=== PATIENT | female | born 1960 | race Caucasian/White ===

== ENCOUNTER → 2019-04-21 | Outpatient (CLI) | payer OTHER ==
[2019-04-21 07:34] LABS: ABSOLUTE EOSINOPHILS 0.1 thou/uL (0.0-0.7); ABSOLUTE LYMPHOCYTES 1.4 thou/uL (0.8-5.3); ABSOLUTE MONOCYTES 0.3 thou/uL (0.0-1.2); ABSOLUTE NEUTROPHILS 2.1 thou/uL (1.6-8.1); BASOPHILS 1.1 %; EOSINOPHILS 3.1 %; HEMATOCRIT 40.4 % (37.0-47.0); HEMOGLOBIN 13.5 gm/dL (12.0-15.0); LYMPHOCYTES 35.8 %; MCH 32.2 pg (26.0-34.0); MCHC 33.4 g/dL (28.0-37.0); MCV 96.3 fL (80.0-100.0); MONOCYTES 7.7 %; NUCLEATED RBCS 0 /100WBC; PLATELET COUNT* 256 thou/uL (150-400); POLYS 52.3 %; RDW-CV 12.1 % (10.5-14.5)
[2019-04-21 07:55] LABS: ALKALINE PHOSPHATASE 91 U/L (46-116); ANION GAP 4 mmol/L (7-16); BUN 21 mg/dL (7-18); CALCIUM 9.4 mg/dL (8.5-10.1); CHLORIDE 108 mmol/L (98-107); CHOLESTEROL 196 mg/dL (<200); CO2 31 mmol/L (21-32); CREATININE 0.9 mg/dL (0.6-1.3); GLUCOSE 111 mg/dL (70-99); HDL CHOLESTEROL 67 mg/dL (>40); LDL CHOLESTEROL 121 mg/dL (<100); POTASSIUM 4.2 mmol/L (3.5-5.1); SGOT 19 U/L (15-37); SGPT 32 U/L (30-65); SODIUM 143 mmol/L (136-145); TC:HDL 2.9 Ratio (Not establshd); TOTAL BILIRUBIN 0.4 mg/dL (<0.1-1.0); TOTAL PROTEIN 7.3 g/dL (6.4-8.2); TRIGLYCERIDE 43 mg/dL (<150); VLDL 9 mg/dL (<40)
[2019-04-21 08:03] LABS: SERUM ASSESSMENT Clear
== END ==
LOC: M.LAB 07:04
PROVIDERS: Nurse Practitioner Family
DX: Z11.59 Encounter for screening for other viral diseases (principal)

== ENCOUNTER → 2020-12-20 | Outpatient (CLI) | payer OTHER ==
[~2020-12-20] MED LIST: ASA81BEC PO; CELEBREX 200 M200 M1 PO; GINGER250 MG PO; GLUCOSAMINE-CH1 EA33 PO; MAGNESIUM MALATE1 GM PO; PREDNISONE 20 M20 MG PO; PROTANDIM PO; TRAMADOL 50 MG50 MG PO; XANAX 0.5 MG0.5 M1 PO; ZINC SULFATE220 MG PO; [UNRECOGNIZED DRUG - OTHER] PO
[2020-12-20 10:29] LABS: HEMATOCRIT 41.5 % (37.0-47.0); MCH 31.5 pg (26.0-34.0); MCHC 33.6 g/dL (28.0-37.0); MCV 93.7 fL (80.0-100.0); MPV 7.9 fl. (7.2-11.1); RBC 4.43 mil/uL (4.20-5.00); RDW-CV 12.3 % (10.5-14.5); WBC 6.3 thou/uL (4.0-11.0)
[2020-12-20 10:43] LABS: APTT 25.4 Seconds (25.0-31.3); PROTIME 10.4 Seconds (9.20-11.50)
[2020-12-20 11:34] LABS: ALBUMIN 4.1 g/dL (3.4-5.0); CALCIUM 9.6 mg/dL (8.5-10.1); CREATININE 0.9 mg/dL (0.6-1.3); POTASSIUM 4.5 mmol/L (3.5-5.1); TOTAL BILIRUBIN 0.5 mg/dL (<0.1-1.0); TOTAL PROTEIN 7.2 g/dL (6.4-8.2)
--- NOTE | 2020-12-20 12:51 | EKG ---
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
== END ==
LOC: M.LAB 10:06
PROVIDERS: ATTEND Orthopaedic Surgery
DX: Z01.812 Encounter for preprocedural laboratory examination (principal); Z20.822 Contact with and (suspected) exposure to COVID-19; N18.6 End stage renal disease; I49.9 Cardiac arrhythmia, unspecified

== ENCOUNTER 2020-12-26 06:15 | Observation (INO) | payer OTHER ==
[~2020-12-26] VITALS: Ht 165.1 cm; Wt 81.6 kg
--- NOTE | ~2020-12-26 | OP ---
[address] [address] OPERATIVE REPORT Name: EBONY GALEAS Room: [address] Ran Black#: [id number] Admission: 12/26/20 Attend Phys: Adina Corral Discharge: Date of : 60 Report #: [id number] THIS REPORT FOR: cc: Isabel Trujillo Tami FNP ~ Alcides Reeder DO DICTATED BY: Rancho Oliveira DO DATE OF SERVICE: 12/26/2020 PREOPERATIVE DIAGNOSIS: Right hip degenerative joint disease. POSTOPERATIVE DIAGNOSIS: Right hip degenerative joint disease. PROCEDURE PERFORMED: Right total hip arthroplasty utilizing the [employer] total hip system with the following components: 1. A size 54 mm G7 acetabular shell. 2. Two 25 mm 6.5 acetabular screws. 3. A 40 mm vitamin E highly cross-linked high wall polyethylene liner. 4. Size 7 standard offset femoral stem. 5. A -3 mm neck with a 40 mm head. SURGEON: Alcides Reeder DO MANAGER DIGITAL AD OPERATIONS: Rancho Oliveira DO and Jorge Iyer DO ANESTHESIA: General. ESTIMATED BLOOD LOSS: 200 mL. ANTIBIOTICS: 2 g Ancef IV preoperatively. SPECIMENS: None. DRAINS: None. COMPLICATIONS: None. CONDITION: The patient is stable to PACU. INDICATIONS FOR PROCEDURE: This is a pleasant 60-year-old female who was seen and examined in the outpatient orthopedic clinic with regards to right hip pain. Radiographs in the clinic were obtained, which demonstrated advanced degenerative joint disease with joint space narrowing, subchondral sclerosis and osteophytic lipping. She tried and failed conservative treatment including [facility] [address] [place] [address] OPERATIVE REPORT Name: EBONY GALEAS Room: [address] Ran Black#: [id number] Admission: 12/26/20 Attend Phys: Adina Corral Discharge: Date of : 60 Report #: [id number] activity modification, anti-inflammatories and therapy. Right total hip arthroplasty was discussed with the patient. The risks, benefits, alternatives and complications were discussed. The patient wished to proceed. DESCRIPTION OF PROCEDURE: The patient was seen and examined in the preoperative holding area. The correct operative extremity was marked. Written consent was obtained. The patient was transferred to the operating room and placed supine on the Morrison table. She was given the benefit of general anesthesia. The legs were then placed in the leg spars. The right lower extremity was then prepped and draped in the usual sterile fashion. Timeout was performed to verify the correct patient, procedure and operative extremity and all were in agreement. Next, procedure began with a standard anterior incision just lateral and distal to the ASIS. Sharp dissection was carried down through subcutaneous layer to the tensor fascia. The tensor fascia was then incised longitudinally in line with the incision. The tensor fascia was then able to be elevated bluntly exposing the interval. Next, the circumflex vessels were identified and cauterized with Aquamantys. Next, the anterior joint capsule was exposed and appropriate retractors were then placed. The joint capsule was then treated with the Aquamantys and an H-type capsulotomy was then performed. This exposed the femoral neck. There was noted to be multiple osteophytes and eburnated bone. Next, the femoral neck cut was performed extending from the central portion of the femoral neck to approximately 1 fingerbreadth above the lesser trochanter. A more proximal napkin ring cut was then made. Napkin ring portion of the femoral neck was removed and the femoral head was removed. Attention was then turned to the acetabulum. Acetabular labrum was excised. The remainder of the ligamentum and the fovea was excised. Next, the acetabulum was reamed sequentially up to a size 53 mm reamer. Final reaming was done under C-arm guidance. Next, the final size 54 mm acetabular shell was inserted in appropriate position. Two acetabular screws were then placed. The central screw cover was then placed as well. Next, the 40 mm high wall liner was then placed with the high wall in the superior direction. Attention was then turned to the femur. Appropriate retractors were placed and the medial capsule was released. Femur was able to be externally rotated to 120 degrees. The leg was then brought into extension and abduction. Femoral lift was placed. Posterior capsule was released allowing the femur to be elevated for appropriate visualization. The femoral canal was then opened with the box osteotome followed by the rat tail rasp. The femur was then broached sequentially starting with a 4 up to a size 7. The size 7 was noted to have excellent stability and fit. This was then trialled. Varying head and neck sizes and lengths were trialed. Ultimately, the -3 was noted to have appropriate leg lengths with excellent stability. The hip was dislocated and the trial components were removed. The final size 7 standard femoral stem was inserted and followed by the -3 neck adapter and 40 mm head. The head and neck were impacted in the standard fashion. The hip was then reduced. The hip was taken through range of motion and noted to have excellent stability. Final [address] [address] OPERATIVE REPORT Name: EBONY GALEAS Room: [facility]#: [id number] Admission: 12/26/20 Attend Phys: Adina Corral Discharge: Date of : 60 Report #: [id number] radiographs were obtained, which demonstrated appropriate position of the implants with no signs of complication. Next, the wound was thoroughly irrigated with normal saline. A 120 mL of orthopedic cocktail was injected. The tensor fascia was then closed with #1 Stratafix in a running fashion. A 2-0 Vicryl was used subcutaneously followed by running 3-0 Stratafix and skin glue. Sterile dressing was applied. The patient was then awakened from anesthesia and transferred to the PACU in stable condition. The patient tolerated the procedure well and no complications. By: [id number] Reeder DO /monserrat
[2020-12-26 07:23] VITALS: BP 144/78
[2020-12-26] MEDS ORDERED: ELIQUIS2.5 MG PO (11:34)
[2020-12-26] MEDS ORDERED: OXYCODONE HCL 55 MG PO (11:36)
[2020-12-26] MEDS ORDERED: TRAMADOL 50 MG50 MG PO (11:37)
[2020-12-26] MEDS ORDERED: ASPIRIN325 PO (11:39)
[2020-12-26 12:06] VITALS: BP 144/78
== END 2020-12-26 17:40 | disposition home or self-care (01) ==
LOC: M.PRE → M.TBA 06:15 → M.PRE 07:00 → M.TBA 17:40
PROVIDERS: ADMIT Internal Medicine; ATTEND Internal Medicine
DX: M16.11 Unilateral primary osteoarthritis, right hip (principal)

== ENCOUNTER → 2021-01-13 | Outpatient (CLI) | payer OTHER ==
[~2021-01-13] MED LIST changes: +ASPIRIN325 PO; +ELIQUIS2.5 MG PO; +OXYCODONE HCL 55 MG PO
== END ==
LOC: M.ULTRA 07:59
PROVIDERS: ATTEND Orthopaedic Surgery
DX: Z47.1 Aftercare following joint replacement surgery (principal); Z96.641 Presence of right artificial hip joint

== ENCOUNTER → 2021-09-12 | Outpatient (CLI) | payer OTHER ==
[2021-09-12 07:42] LABS: HEMATOCRIT 38.4 % (37.0-47.0); HEMOGLOBIN 12.8 gm/dL (12.0-15.0); MCHC 33.5 g/dL (28.0-37.0); MCV 95.8 fL (80.0-100.0); MPV 8.1 fl. (7.2-11.1); RBC 4.01 mil/uL (4.20-5.00); RDW-CV 12.5 % (10.5-14.5); WBC 5.6 thou/uL (4.0-11.0)
[2021-09-12 08:19] LABS: ALBUMIN 3.7 g/dL (3.4-5.0); ALKALINE PHOSPHATASE 77 U/L (46-116); ANION GAP 8 mmol/L (7-16); BUN 22 mg/dL (7-18); CALCIUM 8.8 mg/dL (8.5-10.1); CHLORIDE 105 mmol/L (98-107); CHOLESTEROL 229 mg/dL (<200); CO2 30 mmol/L (21-32); GLUCOSE 99 mg/dL (70-99); HDL CHOLESTEROL 66 mg/dL (>40); LDL CHOLESTEROL 143 mg/dL (<100); MAGNESIUM 2.2 mg/dL (1.8-2.4); POTASSIUM 4.5 mmol/L (3.5-5.1); SERUM ASSESSMENT Clear; SGOT 14 U/L (15-37); SGPT 26 U/L (30-65); SODIUM 143 mmol/L (136-145); TC:HDL 3.5 Ratio (Not establshd); TOTAL BILIRUBIN 0.2 mg/dL (<0.1-1.0); TOTAL PROTEIN 7.1 g/dL (6.4-8.2); TRIGLYCERIDE 100 mg/dL (<150); VLDL 20 mg/dL (<40)
== END ==
LOC: M.LAB 06:57
PROVIDERS: ATTEND Nurse Practitioner Family
DX: Z00.01 Encounter for general adult medical examination with abnormal findings (principal); R91.1 Solitary pulmonary nodule; R73.9 Hyperglycemia, unspecified; R53.83 Other fatigue